=== PATIENT | female | born 1955 | race African-American/Black ===

== ENCOUNTER 2016-05-14 06:38 | Day surgery (SDC) | payer BC ==
[2016-05-12 11:29] VITALS: BMI 22.2
[2016-05-14] MEDS ORDERED: BUPIVACAINE HCL/PF 2.5 MG/ML - 30 ML VIAL IJ ONE ×2 (07:08→07:09)
[2016-05-14] MEDS ORDERED: methylPREDNISolone ACET (DEPO) 40 MG/1 ML VIAL ONE (07:08)
[2016-05-14] MEDS ORDERED: THROMBIN (BOVINE) 5,000 UNIT VIAL TP ONE ×2 (07:08→09:47)
[2016-05-14] MEDS ORDERED: LIDOCAINE 1%-EPI 1:100,000 30 ML MDV IJ ONE (07:08)
[2016-05-14] MEDS ORDERED: oxyCODONE HCL 10 MG SUSTAINED ACTING TABLET ONE (07:30)
[2016-05-14] MEDS ORDERED: oxyCODONE HCL 10 MG SUSTAINED ACTING TABLET PO ONE (07:38)
--- NOTE | 2016-05-14 07:39 | HP ---
History & Physical Update - History History: No Change - Physical Physical: No Change - Assessment Assessment: No Change - Plan Plan: No Change
[2016-05-14] MEDS ORDERED: BUPIVACAINE HCL/PF 0.5% (5MG/ML) 10 ML VIAL ONE (08:03)
[2016-05-14] MEDS ORDERED: MIDAZOLAM HCL 2 MG/2 ML SINGLE DOSE VIAL ONE (08:07)
[2016-05-14] MEDS ORDERED: PROPOFOL 20 ML ONE ×4 (08:07→09:25)
[2016-05-14] MEDS ORDERED: LIDOCAINE 1%/EPI 1:100000 (20 ML MULTI DOSE VIAL) PNB ONE (08:40)
[2016-05-14] MEDS ORDERED: CLINDAMYCIN PHOSPHATE 600 MG/4 ML VIAL ONE (09:01)
[2016-05-14] MEDS ORDERED: methylPREDNISolone ACET (DEPO) 40 MG/1 ML VIAL IM ONE (09:48)
[2016-05-14] MEDS ORDERED: BUPIVACAINE HCL/PF 0.25% (2.5MG/ML) 10 ML VIAL IJ ONE (09:52)
[2016-05-14] MEDS ORDERED: oxyCODONE HCL 5 MG TABLET PO PRN (10:20)
[2016-05-14] MEDS ORDERED: ONDANSETRON 4 MG/2 ML VIAL IVPUSH PRN (10:20)
[2016-05-14] MEDS ORDERED: DEXAMETHASONE SOD PHOSPHATE 4 MG/1 ML VIAL ONE (10:21)
[2016-05-14] MEDS ORDERED: LACTATED RINGERS SOLUTION 1,000 ML IV SCH (10:30)
--- NOTE | 2016-05-14 10:31 | OP ---
Operative Note - Note: Operative Date: 05/14/16 Pre-Operative Diagnosis: spinal stenosis Operation: laminectomy of L5-S1 Post-Operative Diagnosis: Same as Pre-op Surgeon: Jose Villareal Support Services Manager: Cammie Boyd Anesthesiologist/SACK SORTER: Melvin Hargrove Anesthesia: Spinal Estimated Blood Loss (mls): 20 Fluid Volume Replaced (mls): 1,000 Operative Report Dictated: Yes
--- NOTE | 2016-05-14 10:33 | SURG ---
Surgery Commercial Credit Officer Note Commercial Credit Officer: Cammie Boyd PA-C Date of Service: 05/14/16 Diagnosis: spinal stenosis Procedure: laminectomy of L5-S1 I was present for the entirety of the operative procedure. For further detail, please refer to operative report. Visit type - Case Type Case Type: Scheduled Admission - Emergency Emergency Visit: No - New patient This patient is new to me today: Yes Date on this admission: 05/14/16 - Critical Care Critical Care patient: No
[2016-05-14 11:25] VITALS: TEMP 97.6
[2016-05-14 12:28] VITALS: BP 110/62; PULSE 60
--- NOTE | 2016-05-14 17:22 | OP ---
DATE OF OPERATION: 05/14/2016 PREOPERATIVE DIAGNOSIS: Spinal stenosis, L5-S1. POSTOPERATIVE DIAGNOSIS: Spinal stenosis, L5-S1. PROCEDURE PERFORMED: Laminectomy, L5-S1. SURGEON: Jose Villareal M.D. JUNIOR LINUX ADMINISTRATOR: Chris Campos ESTIMATED BLOOD LOSS: 50 mL. INTRAVENOUS FLUIDS: Per anesthesia. ANESTHESIA: Spinal. COMPLICATIONS: There were none. DISPOSITION: Patient brought to the PACU in stable condition. INDICATION FOR SURGERY: The patient is a 61-year-old female who has been suffering from pain from her back down her leg. X-rays and MRI were completed, which noted that she has spinal stenosis at L5-S1. She had gone through an exhaustive course of treatment for this which included medications, physical therapy, as well as injections. Unfortunately, the pain continued to persist in spite of all this. At this point, risks, benefits, and alternatives were discussed and the patient consented to surgery. OPERATIVE NOTE: Patient is brought to the operating room by the anesthesia staff. After appropriate patient identification is performed, spinal anesthesia was given. The patient was able to position herself prone onto the Teo frame with all areas of bony prominences well padded at this time. Two needles were placed into her back to margo off the L5-S1 segment, and x-ray is taken to confirm this is correct. [place] were removed, and 10 mL of lidocaine with epinephrine was injected into her back at this time. Her back was prepped and draped in a sterile manner. At this point timeout was completed. An incision was made from the top of L5 down to the bottom of S1. Dissection was carried down to the fascia. Fascia was then split open at this time, and appropriate retractors were then placed in. Then a spinal needle was placed onto the L5 lamina. An x-ray was taken to confirm this was correct. The needle was removed, and microscope was brought in. At this point, the interspinous ligament at L5-S1 was removed. A portion of the L5-S1 spinous process was removed, and portions of the L5 lamina was removed. The segment identified, it was removed. A portion of the inferior-superior facets were removed to complete foraminotomy. The nerve root was mobilized medially. A disc herniation was noted. It was removed at this time. By the end of the procedure both S1 nerve roots appear to be well decompressed. All bleeding was well controlled at this time. Steroids were placed over the nerve root, Floseal was placed over that. The fascia was closed with a number 1 Vicryl suture. The subcutaneous tissue was closed with 2-0 Vicryl suture. Skin was closed with 3-0 Monocryl suture. Dermabond was applied. Steri-Strips were applied. Sterile dressing was applied. Patient was placed supine on OR bed, and brought to the PACU in stable condition. Chrissie VALVERDE/[id number] MTDD
--- NOTE | 2016-05-15 14:48 | PATH ---
Surgical Pathology Report Patient Name: DEWEY MONTALVO [facility] [place]. Rec. #: [id number] /Age/Gender: 1955 (Age: 61) / F Account: [id number] Location: [facility] AMBULATORY Taken: 05/14/2016 Received: 05/14/2016 Reported: 05/15/2016 Physicians: Jose Villareal M.D. Specimen(s) Received L5-S1 DISC Clinical History Spinal stenosis Final Diagnosis L5-S1 DISC, LAMINECTOMY: CARTILAGE WITH DEGENERATIVE CHANGES. Electronically Signed Juliann Polanco M.D. Gross Description Received in formalin, labeled "L5-S1 disc," is a 0.9 centimeter in greatest dimension velázquez fragment of fibrocartilaginous tissue. The specimen is submitted in toto in one cassette. /05/14/201605/14/2016
== END 2016-05-14 12:15 | disposition home or self-care (01) ==
LOC: FASU 06:38
PROVIDERS: ATTEND Orthopaedic Surgery Orthopaedic Surgery of the Spine
PROC: 01NB0ZZ Release Lumbar Nerve, Open Approach (ICD-10-PCS; principal; 2016-05-14 09:02)
DX: M48.07 Spinal stenosis, lumbosacral region (principal)
CPT/HCPCS: 72100-TC; 76000-TC; 88304-TC; 94760